=== PATIENT | male | born 1990 | race Two or more races ===

== ENCOUNTER 2023-07-25 23:30 | Emergency (ER) | payer BC, SELFPAY | END 2023-07-26 00:34 | disposition home or self-care (01) | LOC: CSHERS 23:30 | DX: T20.27XA Burn of second degree of neck, initial encounter (principal); X08.8XXA Exposure to other specified smoke, fire and flames, initial encounter; Y93.89 Activity, other specified; Y92.69 Other specified industrial and construction area as the place of occurrence of the external cause; Z87.891 Personal history of nicotine dependence; Z55.6 Problems related to health literacy | CPT/HCPCS: 99283 ==